=== PATIENT | male | born 1955 | race Caucasian/White ===

== ENCOUNTER → 2020-06-23 | Outpatient (CLI) | payer OTHER ==
[~2020-06-23] MED LIST: ATOR40TA59 PO; FINA5TAB4 PO; LOSA25TA PO
== END ==
LOC: LAB 07:27
PROVIDERS: ATTEND Nurse Anesthetist, Certified Registered
DX: Z01.812 Encounter for preprocedural laboratory examination (principal); R10.13 Epigastric pain; Z20.828 Contact with and (suspected) exposure to other viral communicable diseases
CPT/HCPCS: U0003-CS

== ENCOUNTER → 2020-06-27 | Day surgery (SDC) | payer OTHER ==
[~2020-06-27] MED LIST changes: +IPRATRPIUM/ALBUTEROL 0.5/2.5MG 3 ML NEBU. NEB PRN; +IV RINGERS SOLUTION,LACTATED 1,000 ML IV SCH; +MIDAZOLAM HCL PF 2 MG/2 ML VIAL. IV ONE; +ONDANSETRON PF 4 MG/2 ML VIAL. IV PRN
[2020-06-27 11:17] VITALS: BP 146/94
--- NOTE | 2020-06-29 16:06 | PATHOLOGY ---
[facility] Accession Number: [id number] . 01 Material submitted: . PART A: small bowel - SMALL BOWEL R/O CELIAC PART B: stomach - GASTRIC BIOPSY H. PYLORI PART C: esophagus - DISTAL ESOPHAGUS GASTRITIS. Modifiers: distal PART D: stomach - GASTRIC POLYP . 02 Diagnosis: A. Duodenal biopsies: - No significant pathologic abnormalities. . B. Gastric biopsies: - Chronic gastritis, mild. . C. Esophageal biopsy, distal esophagus: - Segments of mildly hyperplastic squamous esophageal mucosa. . D. Gastric biopsy, gastric polyp: - Fundic gland polyp. (JPM:krishna; 06/29/2020) QMS 06/29/2020 1001 Local . 02 Comment: Sections of the small bowel biopsy reveal segments of duodenal and small intestine mucosa. Where best oriented, the mucosal villi show no sprue-like changes or significant inflammatory changes. . Sections of the gastric biopsy reveal segments of gastric antral and antral/body transition mucosa showing congestion and mild chronic inflammation. A properly controlled immunoperoxidase stain for Helicobacter is negative for Helicobacter organisms. . Sections of the distal esophageal biopsy reveal segments of tangentially oriented, mildly hyperplastic squamous esophageal mucosa. The findings are consistent with reflux changes. There is no evidence of Amador's change, dysplasia, or malignancy. . Sections of the gastric polyp biopsy reveal a segment of gastric body mucosa containing cystically dilated glands consistent with fundic gland polyp. There are no adenomatous changes or evidence of malignancy. (JPM:krishna; 06/29/2020) . Special stain performed: Immunoperoxidase stain for Helicobacter on B1 . Electronically signed: . Philip Addison MD, Pathologist NPI- [id number] . 01 Gross description: . A. The specimen is received in formalin, labeled "Nigel Quezada, small bowel". Received are two segments of pale conway soft tissue ranging in size from 0.3 to 0.6 cm in maximum dimensions. The specimen is submitted entirely in cassette A1. . B. The specimen is received in formalin, labeled "Nigel Quezada, gastric". Received are two segments of pale [place]way soft tissue ranging in size from 0.3 to 0.4 cm in maximum dimensions. The specimen is submitted entirely in cassette B1. . C. The specimen is received in formalin, labeled "Nigel Quezada, distal esophagus". Received is a segment of pale [place]way soft tissue measuring 0.6 cm in maximum dimensions. The specimen is submitted entirely in cassette C1. . D. The specimen is received in formalin, labeled "Nigel Quezada, gastric polyp". Received is a segment of pale [place]way soft tissue measuring 0.4 cm in maximum dimensions. The specimen is submitted entirely in cassette D1. (CAA; 06/28/2020) QA/QA 06/28/2020 1636 Local . 02 Pathologist provided ICD-10: K29.50, K31.7 . 02 CPT . 374028, 129605, 048491, 343927, [id number] Specimen Comment: A courtesy copy of this report has been sent to [phone], [phone] Specimen Comment: [id number] Specimen Comment: Report sent to / DR TEJEDA Performed [facility]: [facility] [address] [facility] [address], [place] [id number] MD Hugo Jc MD Phone: [phone] Performed at: [facility] [address] [place], [place] [id number] MD Philip Addison MD Phone: [phone]
== END | disposition home or self-care (01) ==
LOC: SURG 08:53
PROVIDERS: ATTEND Emergency Medicine
DX: K29.50 Unspecified chronic gastritis without bleeding (principal); K31.7 Polyp of stomach and duodenum; K57.30 Diverticulosis of large intestine without perforation or abscess without bleeding; Z88.8 Allergy status to other drugs, medicaments and biological substances; Z79.899 Other long term (current) drug therapy
CPT/HCPCS: 43239; J2704; J7120